=== PATIENT | male | born 1970 | race Caucasian/White ===

== ENCOUNTER 2024-03-03 14:18 | Outpatient (CLI) | payer OTHER | END 2024-03-03 23:59 | disposition home or self-care (01) | LOC: MRI 14:18 | PROVIDERS: ATTEND Family Medicine | DX: M17.12 Unilateral primary osteoarthritis, left knee (principal); M25.562 Pain in left knee; M25.462 Effusion, left knee; M71.22 Synovial cyst of popliteal space [Baker], left knee; R60.9 Edema, unspecified | CPT/HCPCS: 73721 ==